=== PATIENT | female | born 1960 | race Caucasian/White ===

== ENCOUNTER 2019-04-02 11:03 | Emergency (ER) | payer MEDICAID ==
[~2019-04-02] VITALS: Ht 162.6 cm; Wt 82.0 kg
[2019-04-02] MEDS ORDERED: KETOROLAC 30MG/ML VIAL IV ONE (11:30)
[2019-04-02] MEDS ORDERED: MORPHINE SULFATE 4 MG/ML CPJ (NOT FOR IM USE) IV ONE ×2 (11:30→13:30)
[2019-04-02 15:45] VITALS: BP 138/78
== END 2019-04-02 15:59 | disposition home or self-care (01) ==
LOC: ER 11:03
DX: S52.592A Other fractures of lower end of left radius, initial encounter for closed fracture (principal); S52.612A Displaced fracture of left ulna styloid process, initial encounter for closed fracture; I10 Essential (primary) hypertension; W01.0XXA Fall on same level from slipping, tripping and stumbling without subsequent striking against object, initial encounter; Y93.89 Activity, other specified; Y92.018 Other place in single-family (private) house as the place of occurrence of the external cause
CPT/HCPCS: 25605; 73100; 73110; 96374; 96375; 96376; 99284; J1885; J2270